=== PATIENT | female | born 1980 | race Two or more races ===

== ENCOUNTER 2018-10-13 09:29 | Outpatient (CLI) | payer OTHER | END 2018-10-13 09:31 | disposition home or self-care (01) | LOC: MAMO-SONO 09:29 | DX: Z12.31 Encounter for screening mammogram for malignant neoplasm of breast (principal) ==

== ENCOUNTER 2019-04-25 11:50 | Outpatient (CLI) | payer OTHER | END 2019-04-25 11:53 | disposition home or self-care (01) | LOC: MAMO-SONO 11:50 | DX: Z12.31 Encounter for screening mammogram for malignant neoplasm of breast (principal); Z87.898 Personal history of other specified conditions; N63.10 Unspecified lump in the right breast, unspecified quadrant; N63.20 Unspecified lump in the left breast, unspecified quadrant; N64.4 Mastodynia ==

== ENCOUNTER 2020-10-01 12:19 | Outpatient (CLI) | payer OTHER | END 2020-10-01 12:33 | disposition home or self-care (01) | LOC: SONOGRAMA 12:19 → MAMO-SONO 12:45 | PROVIDERS: ATTEND Obstetrics & Gynecology | DX: N64.4 Mastodynia (principal); N63.0 Unspecified lump in unspecified breast ==